=== PATIENT | female | born 1995 | race Two or more races ===

== ENCOUNTER 2023-10-21 01:08 | Emergency (ER) | payer OTHER ==
[~2023-10-21] VITALS: Ht 160 cm; Wt 66.2 kg
[2023-10-21 04:05] LABS: HEMATOCRIT 38.4 % (36.0-45.00); HEMOGLOBIN 12.7 g/dL (12.0-15.00); MEAN CELL VOLUME 79.2 fL (80.00-100.00); MEAN CORPUSCULAR HEMOGLOBIN 26.2 pg (27.00-32.0); PLATELET COUNT 331 K/uL (150-450); RED BLOOD COUNT 4.85 M/uL (4.00-6.00); RED CELL DISTRIBUTION WIDTH 12.7 % (11.5-14.5)
[2023-10-21 04:18] LABS: PH,URINE 6.5 (5.0-8.0); URINE APPEARANCE Clear; URINE BILIRRUBIN Negative (NEGATIVE); URINE BLOOD Negative; URINE COLOR Yellow; URINE GLUCOSE Negative (NEGATIVE); URINE KETONE Negative (NEGATIVE); URINE LEUKOCYTE Negative; URINE NITRATE Negative; URINE PROTEIN Negative (NEGATIVE)
[2023-10-21 04:22] LABS: URINE BACTERIA 933.6 uL (0.0-1933); URINE EPITHELIAL CELLS 12.1 uL (0.0-38.8); URINE RBC 18.1 uL (0.0-20.8); URINE WBC 9.4 uL (0.0-23.2)
[2023-10-21] MEDS ORDERED: KETO10TA2 PO (05:47)
== END 2023-10-21 05:51 ==
LOC: ER 01:10
PROVIDERS: General Practice
DX: R10.2 Pelvic and perineal pain (principal); D25.9 Leiomyoma of uterus, unspecified

== ENCOUNTER 2024-09-14 09:49 | Emergency (ER) | payer OTHER ==
[~2024-09-14] VITALS: Ht 160 cm; Wt 62.1 kg
[~2024-09-14 09:49] MED LIST: KETO10TA2 PO
[2024-09-14 10:31] VITALS: BP 115/79; O2SAT 100
[2024-09-14] MEDS ORDERED: 0.9 % SODIUM CHLORIDE 1,000 ML IV SCH (11:00)
[2024-09-14] MEDS ORDERED: KETOROLAC TROMETHAMINE 30 MG VIAL IV ONE (11:00)
[2024-09-14] MEDS ORDERED: CEFTRIAXONE SODIUM 1,000 MG VIAL IV ONE (11:00)
[2024-09-14] MEDS ORDERED: KETOROLAC TROMETHAMINE 30 MG VIAL ONE (11:33)
[2024-09-14] MEDS ORDERED: CEFTRIAXONE SODIUM 1,000 MG VIAL ONE (11:33)
[2024-09-14 11:44] LABS: BASO % 0.3 % (0.1-1.2); EOS # 0.14 (0.04-0.54); EOS % 1.5 % (0.7-7.0); HEMOGLOBIN 12.3 g/dL (11.2-15.7); LYMPH # 2.56 (1.18-3.74); LYMPH % 26.7 % (19.3-53.1); MEAN CORPUSCULAR HEMOGLOBIN 26.2 pg (25.6-32.2); MONO # 0.54 (0.24-0.82); MONO % 5.6 % (4.7-12.5); NEUT # 6.32 (1.56-6.13); NEUT % 65.8 % (34.0-71.1); PLATELET COUNT 314 K/uL (163-369); RED BLOOD COUNT 4.69 M/uL (3.93-5.22)
[2024-09-14 12:20] LABS: PH,URINE 7.5 (5.0-8.0); URINE APPEARANCE Clear; URINE BILIRRUBIN Negative (NEGATIVE); URINE BLOOD Negative; URINE COLOR Yellow; URINE GLUCOSE Negative (NEGATIVE); URINE KETONE Negative (NEGATIVE); URINE LEUKOCYTE Negative; URINE NITRATE Negative; URINE PROTEIN Negative (NEGATIVE); URINE UROBILINOGEN 0.2 E.U./dl
[2024-09-14 12:23] LABS: URINE BACTERIA 366.9 uL (0.0-1933); URINE WBC 2.8 uL (0.0-23.2)
[2024-09-14 13:34] LABS: ALBUMIN 3.7 gm/dL (3.4-5.0); BILIRUBIN TOTAL 0.18 mg/dL (0.3-1.2); CALCIUM 8.9 mg/dL (8.5-10.1); CREATININE SERUM 0.49 mg/dL (0.55-1.02); GFR 149.31; GLOBULINA 4.1 G/DL (2.4-3.5); POTASSIUM 4.08 mEq/L (3.5-5.1); TOTAL PROTEIN 7.8 gm/dL (6.4-8.2)
[2024-09-14] MEDS ORDERED: LEVSIN/SL0.125 MG SL (14:38)
[2024-09-14] MEDS ORDERED: PEPCID AC20 MG PO (14:38)
== END 2024-09-14 14:44 | disposition home or self-care (01) ==
LOC: ER 10:19
PROVIDERS: General Practice
DX: R10.9 Unspecified abdominal pain (principal); N20.0 Calculus of kidney; D25.9 Leiomyoma of uterus, unspecified